=== PATIENT | female | born 1985 | race African-American/Black ===

== ENCOUNTER 2019-04-13 18:33 | Emergency (ER) | payer OTHER ==
[2019-04-13 19:55] LABS: #Eosinphils 0.1 thou/uL (0.0-0.7); #Lymphocytes 2.5 thou/uL (1.20-3.40); #Monocytes 0.5 thou/uL (0.11-0.59); #Neutrophils 3.9 thou/uL (1.40-6.50); %Basophils 0.7 % (0.0-1.0); %Eosinophils 0.9 % (0.0-10.0); %Lymphocytes 36.1 % (21.0-51.0); %Neutrophils 55.4 % (42.0-75.0); Hemoglobin 11.2 g/dL (12.0-16.0); Mean Corpuscular HGB CONC 33.7 g/dL (32.0-36.0); Mean Corpuscular Hemoglobin 30.4 pg (27.0-31.0); Mean Corpuscular Volume 90.4 fL (78.0-98.0); Platelet Count 194 thou/uL (130-400); RBC Distribution Width 12.4 % (11.5-14.5); Red Blood Cell (RBC) Count 3.69 mill/uL (4.20-5.40); White Blood Cell (WBC) Count 7.1 thou/uL (4.8-10.8)
[2019-04-13 20:16] LABS: ALT (SGPT) 8 U/L (8-55); AST (SGOT) 12 U/L (5-34); Albumin 3.6 g/dL (3.5-5.0); Alkaline Phosphatase 59 U/L (40-150); Anion Gap 13 mmol/L (10-20); BUN (Urea Nitrogen) 7 mg/dL (7.0-18.7); Bilirubin, Total 0.3 mg/dL (0.2-1.2); CK (CPK) 108 U/L (29-168); Calc. Creatinine Clearance 0 mL/min (70-130); Calcium 9.3 mg/dL (7.8-10.44); Carbon Dioxide 24 mmol/L (22-29); Chloride 105 mmol/L (98-107); Estimated GFR-MDRD Greater than 90; Globulin 2.7 g/dL (2.4-3.5); Glucose 78 mg/dL (70-105); Lipase 36 U/L (8-78); Potassium 3.6 mmol/L (3.5-5.1); Protein, Total 6.3 g/dL (6.0-8.3); Sodium 138 mmol/L (136-145)
[2019-04-13 20:23] LABS: Bacteria/HPF 4+ HPF (None Seen); Bilirubin Negative (Negative); Blood, Urine Negative (Negative); Calcium Oxalate Crystals 4+ HPF (None Seen); Clarity Clear (Clear); Glucose, Urine (Dipstick) Normal (Negative); Leukocyte 25 Leu/uL (Negative); Nitrite Negative (Negative); Protein, Urine (Dipstick) 10 mg/dL (Neg-Trace); RBC/HPF 0-3 HPF (0-3); Urobilinogen Normal mg/dL (Less than 2)
[2019-04-13] MEDS ORDERED: Acetaminophen 500 MG TAB ONE (21:05)
== END 2019-04-13 21:33 | disposition home or self-care (01) ==
LOC: ERS 18:33
DX: O99.89 Other specified diseases and conditions complicating pregnancy, childbirth and the puerperium (principal); R51 Headache; R82.71 Bacteriuria; O16.2 Unspecified maternal hypertension, second trimester; Z79.82 Long term (current) use of aspirin; Z3A.18 18 weeks gestation of pregnancy
CPT/HCPCS: 36415; 80053; 81003; 81015; 82550; 83690; 84484; 85025; 87086; 93005

== ENCOUNTER 2019-07-17 14:55 | Day surgery (SDC) | payer OTHER ==
[2019-07-17 16:06] VITALS: BMI 27.4
[2019-07-17] MEDS ORDERED: hydrALAZINE 20 MG/ML VIAL SLOW IVP PRN (16:27)
[2019-07-17 17:16] LABS: #Basophils 0.1 thou/uL (0.0-0.2); #Lymphocytes 1.7 thou/uL (1.20-3.40); #Monocytes 0.5 thou/uL (0.11-0.59); #Neutrophils 4.4 thou/uL (1.40-6.50); %Basophils 0.8 % (0.0-1.0); %Eosinophils 0.6 % (0.0-10.0); %Lymphocytes 25.4 % (21.0-51.0); %Monocytes 7.4 % (0.0-10.0); %Neutrophils 65.8 % (42.0-75.0); Hemoglobin 9.9 g/dL (12.0-16.0); Mean Corpuscular HGB CONC 34.1 g/dL (32.0-36.0); Mean Corpuscular Hemoglobin 29.4 pg (27.0-31.0); Mean Corpuscular Volume 86.2 fL (78.0-98.0); Mean Platelet Volume 8.5 fL (7.4-10.4); Platelet Count 177 thou/uL (130-400); RBC Distribution Width 11.5 % (11.5-14.5); Red Blood Cell (RBC) Count 3.38 mill/uL (4.20-5.40); White Blood Cell (WBC) Count 6.7 thou/uL (4.8-10.8)
[2019-07-17 17:29] LABS: Creatinine, Urine 111.08 mg/dL (47-110)
[2019-07-17 17:37] LABS: AST (SGOT) 13 U/L (5-34); Anion Gap 9 mmol/L (10-20); BUN (Urea Nitrogen) Less than 4 mg/dL (7.0-18.7); Calc. Creatinine Clearance 148 mL/min (70-130); Calcium 8.7 mg/dL (7.8-10.44); Carbon Dioxide 24 mmol/L (22-29); Chloride 105 mmol/L (98-107); Estimated GFR-MDRD Greater than 90; Glucose 82 mg/dL (70-105); Sodium 135 mmol/L (136-145)
--- NOTE | 2019-07-17 18:35 | PRG ---
DATE OF SERVICE: 07/17/2019 TIME OF SERVICE: 1755 hours. PRESENTING COMPLAINT: Elevated blood pressures at 32 weeks' gestation. HISTORY OF PRESENT ILLNESS: Ms. Rodney is a 33-year-old, 4, para 3, who sees myself at [facility]. She has a history of gestational hypertension in previous pregnancies and has an advanced maternal age OB. She had been started on baby aspirin during her . Today, she checked her blood pressure first time and got 150 systolic over 80s diastolic. She denied headache or blurred vision. She presented for evaluation. ARMATURE STRAIGHTENER HISTORY: As noted, x3. The patient transferred a 15 weeks' gestation. She had a normal 50 g, normal 32-week labs. MEDICAL HISTORY: No history of hypertension outside of . The patient has a low-grade MOISES on Pap. PAST SURGICAL HISTORY: None. ALLERGIES: NONE. MEDICATIONS: vitamin and baby aspirin. SOCIAL HISTORY: Denies tobacco, alcohol, or drug abuse. FAMILY HISTORY: Noncontributory. REVIEW OF SYSTEMS: Noncontributory. PHYSICAL EXAMINATION: GENERAL: A black female, in no acute distress. VITAL SIGNS: Blood pressure 120/82, pulse 85, respirations 18, temperature 98.6. HEENT: Within normal limits. LUNGS: Clear to auscultation bilaterally. HEART: Regular rate and rhythm. ABDOMEN: Soft, nontender. No rebound or guarding. PELVIS: Vulva without lesions. Vaginal exam deferred. EXTREMITIES: Without clubbing, cyanosis, or edema. 1+ DTRs. Serial blood pressures were 130s over 80s, last over 2 hours. monitoring revealed a category 1 heart rate tracing, baseline at 130s to 140s. No contractions. No decelerations. LABORATORY DATA: Hematocrit of 29% with microcytic indices consistent with . Normal platelet count at 177. Normal comprehensive metabolic panel with an AST of 13, normal creatinine, protein to creatinine ratio of approximately 0.15. IMPRESSION: History of gestational hypertension at 32 weeks' gestation with normal range blood pressures now, isolated elevated systolic at home. PLAN: Reassurance. Continue blood pressure measurements in proper technique twice daily. Keep scheduled followup with Dr. Mohamud and ELEN sargent. Job ID: [id number]
== END 2019-07-17 18:40 | disposition home or self-care (01) ==
LOC: L&D/OP 14:55
PROVIDERS: ATTEND Obstetrics & Gynecology
DX: O13.3 Gestational [pregnancy-induced] hypertension without significant proteinuria, third trimester (principal); O09.523 Supervision of elderly multigravida, third trimester; Z3A.32 32 weeks gestation of pregnancy; Z79.82 Long term (current) use of aspirin
CPT/HCPCS: 36415; 80048; 82570; 84156; 84450; 85025

== ENCOUNTER 2019-08-25 23:48 | Inpatient (IN) | payer OTHER ==
[2019-08-26 00:36] VITALS: BMI 28.5
[2019-08-26] MEDS ORDERED: Lidocaine 1% (PF) 30 ML VIAL SC PRN (00:49)
[2019-08-26] MEDS ORDERED: NS w/ Oxytocin 10 units 500 ML IV SCH (00:49)
[2019-08-26] MEDS ORDERED: Ondansetron PF 4 MG/2 ML Vial IVP PRN ×3 (00:49→11:08)
[2019-08-26] MEDS ORDERED: Ibuprofen 800 MG TAB PO PRN (00:49)
[2019-08-26] MEDS ORDERED: Promethazine HCl 25 MG/ML VIAL IM PRN ×2 (00:49→05:40)
[2019-08-26] MEDS ORDERED: Butorphanol Tartrate 1 MG/ML VIAL SLOW IVP PRN (00:49)
[2019-08-26] MEDS ORDERED: Lactated Ringer's 1,000 ML IV SCH (00:49)
[2019-08-26] MEDS ORDERED: hydrALAZINE 20 MG/ML VIAL SLOW IVP PRN ×2 (00:49→11:08)
[2019-08-26] MEDS ORDERED: HYDROcodone/Acetaminophen 5/325 mg Tablet PO PRN ×2 (00:49)
[2019-08-26] MEDS: Lactated Ringer's 1,000 ML IV SCH ×2 (01:12→05:26)
[2019-08-26] MEDS: Misoprostol 100 MCG TAB VAG SCH ×4 (01:13→21:47)
[2019-08-26 01:30] LABS: Hemoglobin 10.5 g/dL (12.0-16.0); Mean Corpuscular HGB CONC 35.2 g/dL (32.0-36.0); Mean Corpuscular Volume 82.5 fL (78.0-98.0); Mean Platelet Volume 8.5 fL (7.4-10.4); Platelet Count 224 thou/uL (130-400); RBC Distribution Width 12.2 % (11.5-14.5); Red Blood Cell (RBC) Count 3.63 mill/uL (4.20-5.40); White Blood Cell (WBC) Count 5.8 thou/uL (4.8-10.8)
[2019-08-26 02:14] LABS: HBSAg Index 0.17 S/CO (0-0.99); Hep B Surf Ag Non-Reactive S/CO (NonReactive)
[2019-08-26 02:43] LABS: ALT (SGPT) 10 U/L (8-55); AST (SGOT) 17 U/L (5-34); Albumin 3.6 g/dL (3.5-5.0); Alkaline Phosphatase 138 U/L (40-110); Anion Gap 13 mmol/L (10-20); BUN (Urea Nitrogen) 4 mg/dL (7.0-18.7); Bilirubin, Total 0.4 mg/dL (0.2-1.2); Calc. Creatinine Clearance 151 mL/min (70-130); Calcium 9.2 mg/dL (7.8-10.44); Carbon Dioxide 21 mmol/L (22-29); Chloride 106 mmol/L (98-107); Estimated GFR-MDRD Greater than 90; Globulin 3.2 g/dL (2.4-3.5); Glucose 76 mg/dL (70-105); Potassium 3.8 mmol/L (3.5-5.1); Protein, Total 6.8 g/dL (6.0-8.3); Sodium 136 mmol/L (136-145)
[2019-08-26 04:28] LABS: Creatinine, Urine 53.63 mg/dL (47-110)
[2019-08-26] MEDS ORDERED: Fentanyl 4 mcg/Bup 0.1% Cadd 100 ML ONE (04:58)
[2019-08-26] MEDS ORDERED: Acetaminophen 325 MG TAB PO PRN (05:40)
[2019-08-26] MEDS ORDERED: ePHEDrine/0.9% NaCl/PF SYRINGE 50 mg/10 ml SLOW IVP PRN (05:40)
[2019-08-26] MEDS ORDERED: Lactated Ringer's 500 ML IV PRN (05:40)
[2019-08-26] MEDS ORDERED: Naloxone HCl 0.4 mg/ml Vial IVP PRN ×2 (05:40)
[2019-08-26] MEDS ORDERED: diphenhydrAMINE 50 MG/ML VIAL IVP PRN (05:40)
[2019-08-26] MEDS ORDERED: Communication Order-Pharmacy FS SCH (05:45)
[2019-08-26] MEDS ORDERED: Fentanyl 4 mcg/Bupivacaine 0.1% Cassette 100 ML EPIDURAL SCH (05:45)
[2019-08-26 06:10] LABS: Syphilis Antibody Nonreactive (Nonreactive); Syphilis Antibody Index 0.04 S/CO (<1.00 Non-Reactive)
--- NOTE | 2019-08-26 07:15 | HP ---
TIME OF SERVICE: 39 REASON FOR ADMISSION: Gestational hypertension with occasional severe range pressures at 37 weeks gestation. HISTORY OF PRESENT ILLNESS: Ms. Rodney is a 33-year-old, 4, para 3, status post x3 with history of gestational hypertension with previous pregnancies and previous placental abruption 35 weeks. She has been seen by myself at [facility] since first trimester. She has had a slowly elevating blood pressures over the last few weeks. She has been receiving antepartum testing on a weekly basis. Tonight, she described onset of headache earlier in the day. She was seen in the emergency room in [place] and had systolic blood pressures up to 150s over 100, but then some pressures down in the 120s to 130s systolic and was discharged home when she called the answering service to instruct the patient to present to the Labor and Delivery at [facility] for further evaluation. DOMESTIC CLEANER HISTORY: As noted. History of gestational hypertension, on baby aspirin daily. 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 The patient had enrollment of care at 15 weeks' gestation. She is blood type O positive, antibody negative. Pap positive. Rubella immune. VDRL nonreactive. Hepatitis B, GC, chlamydia -50 g normal. Group B strep negative. PAST MEDICAL HISTORY: Denies. PAST SURGICAL HISTORY: Denies. ALLERGIES: DENIES. MEDICATIONS: 1. vitamins. 2. Baby aspirin. SOCIAL HISTORY: Denies tobacco, alcohol, or drug use. FAMILY HISTORY: Noncontributory. REVIEW OF SYSTEMS: Noncontributory. PHYSICAL EXAMINATION: GENERAL: White female, somewhat anxious. No acute distress. VITAL SIGNS: Blood pressure upon presentation was 124/86. Respirations 18. DTRs are 1+. LUNGS: Clear to auscultation bilaterally. HEART: Regular rhythm. ABDOMEN: Soft, nontender, category 1 heart rate tracing positive accelerations 140s. Vulva without lesions. Cervix is 140, -2, cephalic, and posterior, . EXTREMITIES: No clubbing, cyanosis, or edema. IMPRESSION: Patient with worsening gestational hypertension at 37 weeks gestation with EDC of 09/11/2019. Patient was greater than 2 hours in the hospital. Patient has had intermittent blood pressures at home with systolics in the 150s to 160s and diastolics in the 90s to low one 100s. Patient now symptomatic with some mild headache. PLAN: 1. Preeclampsia labs. 2. Cytotec. 3. Induction of labor. Anticipate spontaneous vaginal delivery. Job ID: [id number]
--- NOTE | 2019-08-26 08:33 | PRG ---
DATE OF SERVICE: 08/26/2019 TIME OF SERVICE: 0815 hours. The patient has progressed and is now 4 cm, 80% effaced, and -1 station. heart rate tracing is category I. She has had 2 doses of Cytotec. Pitocin has not been started at this time. Amniotomy was performed with clear fluid. head was well applied against the cervix. IMPRESSION: A 37 weeks' gestation with gestational hypertension, now progressing to induction of labor. No severe range pressures. PLAN: Continue current care. Pitocin as needed. Anticipate spontaneous vaginal delivery. Job ID: [id number]
[2019-08-26] MEDS: NS / Oxytocin 40 units/1000ml 1,000 ML IV PRN ×2 (08:53→10:35)
[2019-08-26] MEDS ORDERED: Milk Of Magnesia 30 ML UDCUP PO PRN (11:08)
[2019-08-26] MEDS ORDERED: Lanolin Ointment 7 GM TUBE TOP PRN (11:08)
[2019-08-26] MEDS ORDERED: NS / Oxytocin 40 units/1000ml 1,000 ML IV SCH (11:08)
[2019-08-26] MEDS ORDERED: Preparation H Ointment 28 GM TUBE PR PRN (11:08)
[2019-08-26] MEDS ORDERED: Benzocaine-Menthol 82.5 ML CAN TOP PRN (11:08)
[2019-08-26] MEDS ORDERED: diphenhydrAMINE 25 MG CAP PO PRN (11:08)
[2019-08-26] MEDS ORDERED: Zolpidem Tartrate 5 MG TAB PO PRN (11:08)
[2019-08-26] MEDS ORDERED: Acetaminophen/Codeine 30-300mg Tablet PO PRN ×2 (11:08)
[2019-08-26] MEDS ORDERED: Bisacodyl 10 MG SUPP PR PRN (11:08)
[2019-08-26] MEDS: Ibuprofen 800 MG TAB PO SCH ×2 (15:01→22:17)
[2019-08-26] MEDS: Docusate Calcium (SURFAK) 240 MG CAP PO SCH (22:17)
[2019-08-27] MEDS: Ibuprofen 800 MG TAB PO SCH (06:23)
--- NOTE | 2019-08-27 08:06 | PDOC.PP ---
Post Progress Note Post Day #: 1 PO intake tolerated: yes Flatus: yes Ambulation: yes Vital Signs (12 hours) Temp Pulse Resp BP Pulse Ox 08/27/19 04:38 98.2 F 81 16 141/83 H 98 08/27/19 00:45 98.0 F 98 18 133/72 99 Weight Weight 161 lb - Physical Examination General: NAD Cardiovascular: no m/r/g, RRR Respiratory: clear to auscultation bilaterally, non-labored breathing Abdominal: lochia, no distention Extremities: negative homans (B) Neurological: no gross focal deficits Psychiatric: A&Ox3, normal affect Result Diagrams: 08/26/19 00:58 08/26/19 00:58 Additional Labs: Post Labs Blood Type O POSITIVE 08/26/19 00:58 Hep Bs Antigen Non-Reactive S/CO (NonReactive) 08/26/19 00:58 - Assessment/Plan doing well. desires dc home
[2019-08-27 08:19] VITALS: TEMP 98.3
[2019-08-27] MEDS ORDERED: Adacel (T-DAP) 0.5 ML SYRINGE IM ONE (09:00)
[2019-08-27] MEDS ORDERED: Prenatal Vitamin 1 TAB PO SCH (09:00)
[2019-08-27] MEDS: Docusate Calcium (SURFAK) 240 MG CAP PO SCH (09:17)
[2019-08-27 11:54] VITALS: BP 139/76
== END 2019-08-27 14:05 | disposition home or self-care (01) | DRG 807 ==
LOC: L&D 23:48 → EEVIPCON 23:48 → 3SE 08-26 13:24
PROVIDERS: ADMIT Obstetrics & Gynecology; ATTEND Obstetrics & Gynecology
PROC: 10E0XZZ Delivery of Products of Conception, External Approach (ICD-10-PCS; principal; 2019-08-25)
PROC: 3E033VJ Introduction of Other Hormone into Peripheral Vein, Percutaneous Approach (ICD-10-PCS; 2019-08-25)
DX: O13.4 Gestational [pregnancy-induced] hypertension without significant proteinuria, complicating childbirth (principal); Z37.0 Single live birth; Z3A.37 37 weeks gestation of pregnancy
CPT/HCPCS: 36416; 51702; 80053; 82570; 84156; 85027; 86780; 86850; 86900; 86901; 87340; J2405

== ENCOUNTER 2019-09-02 18:20 | Inpatient (IN) | payer OTHER ==
[2019-09-02] MEDS ORDERED: Labetalol HCl 100 MG/20 ML VIAL SLOW IVP SCH (19:30)
[2019-09-02 19:44] LABS: #Eosinphils 0.1 thou/uL (0.0-0.7); #Monocytes 0.4 thou/uL (0.11-0.59); %Basophils 0.7 % (0.0-1.0); %Eosinophils 1.5 % (0.0-10.0); %Lymphocytes 35.9 % (21.0-51.0); %Monocytes 7.8 % (0.0-10.0); %Neutrophils 54.1 % (42.0-75.0); Hemoglobin 11.1 g/dL (12.0-16.0); Mean Corpuscular Volume 84.8 fL (78.0-98.0); Mean Platelet Volume 8.5 fL (7.4-10.4); Platelet Count 259 thou/uL (130-400); RBC Distribution Width 12.7 % (11.5-14.5); Red Blood Cell (RBC) Count 3.97 mill/uL (4.20-5.40); White Blood Cell (WBC) Count 5.5 thou/uL (4.8-10.8)
[2019-09-02 19:46] VITALS: BMI 30.4
[2019-09-02] MEDS ORDERED: Ondansetron PF 4 MG/2 ML Vial IVP PRN (19:47)
[2019-09-02] MEDS ORDERED: Calcium Gluconate 4.6 MEQ in Sodium Chloride 0.9% 100 ML IVPB PRN (19:47)
[2019-09-02] MEDS ORDERED: Promethazine HCl 25 MG/ML VIAL IM PRN (19:47)
[2019-09-02] MEDS ORDERED: Acetaminophen 500 MG TAB PO PRN (19:47)
[2019-09-02] MEDS ORDERED: Butorphanol Tartrate 1 MG/ML VIAL SLOW IVP PRN (19:47)
[2019-09-02] MEDS ORDERED: MAGNESIUM SULFATE IV SCH (20:00)
[2019-09-02] MEDS ORDERED: WATER IV SCH (20:00)
[2019-09-02] MEDS ORDERED: DEXTROSE IV SCH (20:00)
[2019-09-02] MEDS ORDERED: ADMIXTURE FEE IV SCH (20:00)
[2019-09-02 20:03] LABS: ALT (SGPT) 21 U/L (8-55); AST (SGOT) 24 U/L (5-34); Albumin 3.5 g/dL (3.5-5.0); Alkaline Phosphatase 115 U/L (40-110); Anion Gap 11 mmol/L (10-20); BUN (Urea Nitrogen) 5 mg/dL (7.0-18.7); Bilirubin, Total 0.5 mg/dL (0.2-1.2); Calc. Creatinine Clearance 131 mL/min (70-130); Calcium 8.7 mg/dL (7.8-10.44); Carbon Dioxide 26 mmol/L (22-29); Chloride 108 mmol/L (98-107); Estimated GFR-MDRD Greater than 90; Glucose 94 mg/dL (70-105); Potassium 3.3 mmol/L (3.5-5.1); Protein, Total 6.5 g/dL (6.0-8.3); Sodium 142 mmol/L (136-145)
[2019-09-02] MEDS ORDERED: Magnesium Sulfate 20 GM/WATER 500 ML BAG IVPB SCH (20:15)
[2019-09-02] MEDS ORDERED: Magnesium Sulfate 20 gm/500 ml 20 GM/500 ML BAG IVPB SCH (20:30)
[2019-09-02 21:10] LABS: Bacteria/HPF None Seen HPF (None Seen); Bilirubin Negative (Negative); Blood, Urine 3+ (Negative); Clarity Clear (Clear); Glucose, Urine (Dipstick) Normal (Negative); Leukocyte 500 Leu/uL (Negative); Nitrite Negative (Negative); Protein, Urine (Dipstick) 10 mg/dL (Neg-Trace); RBC/HPF Greater than 50 HPF (0-3); Squamous Epithelial 0-3 HPF (0-3); Urobilinogen Normal mg/dL (Less than 2); WBC/HPF Greater than 50 HPF (0-3)
--- NOTE | 2019-09-02 21:20 | HP ---
REGULAR PHYSICIAN: Sam Mohamud MD CHIEF COMPLAINT: Elevated blood pressure at home, headache. HISTORY OF PRESENT ILLNESS: Ms. Rodney is a 33-year-old black G5, P4, status post vaginal delivery on 08/26/2019, who presents complaining of elevated blood pressures at home and mild headache. She denies changes in her vision or right upper quadrant pain. She had been delivered by Dr. Mohamud's approximately a week ago. She did not require magnesium for her blood pressure at that time. PAST OBSTETRICAL HISTORY: Includes four vaginal deliveries, essentially all at term. SAB x1. PAST MEDICAL HISTORY: None. PAST SURGICAL HISTORY: Includes hemorrhoidectomy. CURRENT MEDICATIONS: vitamins. ALLERGIES: NO KNOWN ALLERGIES. SOCIAL HISTORY: She denies tobacco, alcohol, or drug use. FAMILY HISTORY: Unremarkable. REVIEW OF SYSTEMS: Denies nausea, vomiting, fever, or chills. Positive for headaches. Negative for blurry vision or right upper quadrant pain. PHYSICAL EXAMINATION: VITAL SIGNS: Initial blood pressure is 145/95. Subsequent blood pressures are 169/97 and 160/97. Her pulse is 82. She is afebrile. GENERAL: She is pleasant, but does not appear to feel well. CHEST: Clear to auscultation. CARDIOVASCULAR: Regular rate and rhythm. ABDOMEN: Soft and nontender. PELVIC: Deferred. LABORATORY DATA: White count 5.5, hemoglobin and hematocrit 11.1 and 33.7 respectively. Platelet count 259,000. Chemistry; sodium 142, potassium 3.3, chloride 108, creatinine 0.69. Glucose 94, total bilirubin 0.5, AST 24, ALT 21, alkaline phosphatase 115. ASSESSMENT: Late onset preeclampsia. PLAN: The patient will be admitted to Labor and Delivery. Labetalol will be started for blood pressure and she will be put on magnesium prophylaxis. She will continue on magnesium for 24 hours and her blood pressure will be monitored closely. Job ID: [id number] [facility]
[2019-09-02 21:25] LABS: Creatinine, Urine 51.56 mg/dL (47-110)
[2019-09-02] MEDS: Acetaminophen 500 MG TAB PO PRN (23:36)
[2019-09-03] MEDS: Ibuprofen 800 MG TAB PO PRN ×2 (02:33→10:22)
[2019-09-03] MEDS: Acetaminophen 500 MG TAB PO PRN (06:10)
--- NOTE | 2019-09-03 06:20 | PDOC.EVN ---
Event Note - Event Note Event Note: MCGOVERN some better with Tylenol, Motrin. BPs improved, now 131/79. UO adequate. Mg at 2 gm/hr. Plan: Cont. MgSO4 x 24 hrs.
--- NOTE | 2019-09-03 10:39 | PDOC.EVN ---
Event Note - Event Note Event Note: DANY OnCall: At bedside. See dictation. Head MRI ordered to be conservative. Mag level checked. Started on po Labetolol 100mg po BIB. Mag until this PM
--- NOTE | 2019-09-03 11:13 | PRG ---
DATE OF SERVICE: 09/03/2019 TIME OF SERVICE: 1025 to 1035 hours. Hospital day 1 (the patient admitted on September 02, 2019). MEDICATIONS IN USE: Magnesium sulfate IV. SUBJECTIVE: In brief, this patient was admitted on 09/02/2019 as a patient, who is about 8 days from vaginal delivery, who is now on magnesium sulfate for some severe blood pressure . Working diagnosis is severe preeclampsia. I evaluated the patient at bedside along with Rosa, the patient's nurse. The patient is doing well and urinating fine, but states that her headache, which is retro-orbital (bilateral) is moderate in intensity and has not gone away since admission. She has no double vision or right upper quadrant pain. She states that she does not feel any better. She does not have any associated nausea. She does have some photophobia. OBJECTIVE: The patient's vital signs were reviewed and in general her blood pressures are in the 120s to 130s over 70s with isolated spikes in the 160s to the high diastolics of 105 or so. These are not repetitive in the unit and tend to be sporadic in occurrence. I have discussed with her. I started her on oral labetalol 100 mg p.o. b.i.d. as a temporizing measure. I did review her history with her and she states that she had high blood pressure with her previous delivery and was started on blood pressure medications for a while, but then they were discontinued. She states her blood pressures are generally normal in between pregnancies. So at this time, I am not sure if this is aggravated chronic hypertension or preeclampsia. ASSESSMENT: This is a patient, who is now day #8 with severe blood pressures that are sporadic and has received labetalol during the night. Persistent headache, which is bilateral retro-orbital. PLAN: 1. Continue magnesium sulfate until 24 hours, which will be tonight at 1900 hours. 2. I discussed with her MRI imaging of the brain due to persistent headache, bilateral retro-orbital. Although this may simply be a sign of preeclampsia, I do not want to miss anything else and so I have discussed the MRI with contrast. 3. Because of the gadolinium IV contrast, it is recommended for the patient to pump and discard the milk for 24 hours. 4. The patient is aware about pumping and discarding the milk for 24 hours. 5. I have also ordered a stat magnesium level because some of her headache may be that she is subtherapeutic. Her deep tendon reflexes are 1+ and she has no somnolence, so I am going to check a magnesium level just to see if she is therapeutic or not. 6. I will start her on labetalol 100 mg p.o. b.i.d. for now and we will also likely send her home with that as a temporizing measure to ensure she does not have high blood pressure spikes at home. 7. Awaiting MRI. Job ID: [id number]
[2019-09-03] MEDS ORDERED: Labetalol 100 MG TAB PO SCH ×2 (11:30→21:00)
--- NOTE | 2019-09-03 11:52 | PDOC.EVN ---
Event Note - Event Note Event Note: OBGYN After discussing with Lactational Services ([facility]), no need to interrupt after gadolinium based on data. OK to continue per current policy.
--- NOTE | 2019-09-03 12:47 | PDOC.EVN ---
Event Note - Event Note Event Note: Lab check: Mag level therapeutic at 5.9 (goal 4-8). Urinating well.
--- NOTE | 2019-09-03 13:05 | PDOC.EVN ---
Event Note - Event Note Event Note: Going to MRI now. I am holding the MAG while she is in Radiology to prevent any inadvertent bolus of medication while there. Restart back in L&D.
--- NOTE | 2019-09-03 13:52 | MRI ---
EXAM: MRI of the brain without and with contrast HISTORY: Hypertension status post vaginal one week ago with headache COMPARISON: None TECHNIQUE: Multiplanar multisequence MR images were obtained of the brain without and with IV contras t. FINDINGS: The brain demonstrates normal signal intensity on all obtained sequences. No restricted diffusion. No abnormal enhancement. No hydronephrosis. No extra-axial fluid collection or intracranial hemorrhage. The expected flow voids are present. Corpus callosum, pituitary, and craniocervical junction are within normal limits. The calvarium and overlying soft tissues are unremarkable. The paranasal sinuses and mastoid air cells are well aerated. IMPRESSION: No evidence of acute intracranial abnormality.
--- NOTE | 2019-09-03 15:07 | PDOC.EVN ---
Event Note - Event Note Event Note: MRI was negative
--- NOTE | 2019-09-03 18:02 | PDOC.EVN ---
Event Note - Event Note Event Note: OK to stop Mag now Continue with Labetolol 100mg po BID
--- NOTE | 2019-09-04 02:38 | PDOC.EVN ---
Event Note - Event Note Event Note: BP checks: In general BPs 130-150/90s
--- NOTE | 2019-09-04 06:34 | PDOC.EVN ---
Event Note - Event Note Event Note: HD3 (admitted 09/02/19) Patient seen by me at bedside at 0630 S. Doing well...MCGOVERN improved. Karime po O. BPs reviewed..systolics still occasionally at 150s. Head MR was negative yesterday A/P: OK for floor transfer to from L&D. We discussed increase in oral labetolol from 100 to 200mmg po BID. Order placed. We will see if BPs better today at 200mg po BID. Patient agrees to in-house obs today with possible DC to home tomorrow
[2019-09-04] MEDS: Labetalol 100 MG TAB PO SCH ×2 (09:15→20:52)
[2019-09-04] MEDS: Docusate Calcium (SURFAK) 240 MG CAP PO SCH (22:33)
--- NOTE | 2019-09-05 06:33 | PDOC.BPN ---
- Brief Progress Note S: Denies any complaints at this time. MCGOVERN resolved. O: mild range with occasional severe range BPs overnight Gen - AAO, NAD A/P: Patient with continued severe range pressures last night after increase in dose to 200mg BID. BPs overall higher than before. Will increase to 300mg BID. Continue to monitor.
[2019-09-05] MEDS: Docusate Calcium (SURFAK) 240 MG CAP PO SCH ×2 (08:11→21:12)
[2019-09-05] MEDS ORDERED: Labetalol 100 MG TAB PO SCH ×3 (09:00→21:00)
[2019-09-05 21:13] VITALS: BP 147/68
[2019-09-05 21:58] VITALS: TEMP 98.3
--- NOTE | 2019-09-05 22:15 | DIS ---
DATE OF ADMISSION: 09/02/2019 DATE OF DISCHARGE: 09/05/2019 ADMITTING DIAGNOSES: 1. preeclampsia with severe features. 2. Status post spontaneous vaginal delivery on 08/26/2019. DISCHARGE DIAGNOSES: 1. preeclampsia with severe features. 2. Status post spontaneous vaginal delivery on 08/26/2019. PROCEDURES: Magnesium for seizure prophylaxis. CONSULTATIONS: None. HOSPITAL COURSE: The patient is a 33-year-old female, presenting to Labor and Delivery approximately 7 to 10 days after the vaginal of her baby with elevated pressures at home and mild headache. The patient was admitted for preeclampsia with severe features, placed on magnesium for seizure prophylaxis and treated for elevated severe range blood pressures. Her course here has been complicated with needing to adjust her blood pressure medications. She is now hospital day #4 status post magnesium for seizure prophylaxis. Blood pressure medications have been increased to labetalol 200 mg 3 times a day. She has done well with that regimen with her blood pressures in the normal to mild range. Her last severe pressure was about 24 hours ago. The patient has expressed desire to be discharged tonight. She has no complaints. Blood pressure most recently was 140/77, pulse of 97, respiratory rate of 20. In general, she appears to be in no acute distress. The patient is being discharged to home. She is going home with labetalol 200 mg 3 times a day for 2 weeks and vitamins. She has been given instructions to follow up with Dr. Mohamud in 1 week for blood pressure check. The patient has been given instructions to seek medical attention should she experience increasing fever, pain, bleeding, or other concerning features such as persistent headache, right upper quadrant tenderness, or other concerns. Job ID: [id number]
[2019-09-05] MEDS: Ibuprofen 800 MG TAB PO PRN (23:10)
== END 2019-09-05 23:30 | disposition home or self-care (01) | DRG 776 ==
LOC: L&D/OP 18:20 → L&D 20:22 → UNDOADMIN 09-03 00:48 → L&D 09-03 00:48 → 3SW 09-04 08:55
PROVIDERS: ADMIT Obstetrics & Gynecology; ATTEND Obstetrics & Gynecology
DX: O14.15 Severe pre-eclampsia, complicating the puerperium (principal)
CPT/HCPCS: 36415; 70553; 80053; 81003; 81015; 82570; 83735; 84156; 85025; 99285; J0595; J3475; J7070

== ENCOUNTER 2024-02-08 20:29 | Emergency (ER) | payer BC, OTHER ==
[2024-02-08] MEDS ORDERED: Lidocaine 1% PF 5 ML VIAL ONE (22:06)
[2024-02-10 00:50] LABS: GC by PCR, Vaginal Swab Not Detected (NotDetected)
== END 2024-02-08 23:49 | disposition home or self-care (01) ==
LOC: ERS 20:29
DX: N75.1 Abscess of Bartholin's gland (principal); Z79.899 Other long term (current) drug therapy
CPT/HCPCS: 56420; 87480; 87510; 87591; 87660